=== PATIENT | male | born 1950 | race Caucasian/White ===

== ENCOUNTER 2019-07-22 23:13 | Inpatient (IN) | payer MEDICAID, MEDICARE, OTHER ==
[2019-07-23 00:06] LABS: ABS Lymphocytes 0.4 10^3/ul (1.0-4.8); ABS Monocytes 0.8 10^3/ul (0-0.8); ABS Neutrophils 11.2 10^3/ul (1.5-7.7); Eosinophil % 0.1 %; Hematocrit 32 % (42-52); Hemoglobin 10.5 g/dL (14.0-18.0); Lymphocyte % 3.2 %; Mean Corpuscular HGB Conc 33 g/dL (31-36); Mean Corpuscular Hemoglobin 28 pg (27-31); Mean Corpuscular Volume 85 fL (80-94); Nucleated Red Blood Cells % 0.1; Platelet Count 194 10^3/uL (150-450); Red Blood Count 3.79 10^6 /uL (4.18-5.48); Red Cell Distribution Width 16 % (10-15); White Blood Count 12.4 10^3/uL (3.5-10.8)
--- NOTE | 2019-07-23 00:08 | ED ---
Complex/Multi-Sys Presentation - HPI Summary HPI Summary: This patient is a 69 year old M SOREN vis EMS to ED with a chief complaint of dizziness and weakness since 1600 today. Patient took his family downtown to go shopping today. At 1600, patient began to have abdominal pain and nausea and reports losing all his energy. Patient went home and felt very dizzy and nauseous. He felt weak and felt like he was going to pass out. Patient became weaker throughout the day and so patients called EMS at 2200. Patient felt completely fine this morning, but he skipped breakfast. He did not have SOB , cough, chest pain, diarrhea. The patient rates the pain 0/10 in severity. Symptoms aggravated by nothing. Symptoms alleviated by nothing. Patient reports headache, tense neck muscles, chills. Oral temperature in the room is 98.1 F. - History Of Current Complaint Chief Complaint: EDDizziness Time Seen by Provider: 07/22/19 23:43 Hx Obtained From: Patient Onset/Duration: Sudden Onset, Lasting Hours - Since 1600, Still Present, Worse Since Timing: Constant Severity Currently: Mild Severity Initially: Mild Location: Pain At: - Headache Aggravating Factor(s): Nothing Alleviating Factor(s): Nothing Associated Signs And Symptoms: Positive: Dizziness, Weakness, Headache, Nausea, Other - Neck tenseness, chills. Negative: SOB, Cough, Chest Pain - Allergies/Home Medications Allergies/Adverse Reactions: Allergies Allergy/AdvReac Type Severity Reaction Status Date / Time MS Cefaclor [Cefaclor] Allergy Mild Unknown Verified 05/08/14 15:31 Reaction Details PMH/Surg Hx/FS Hx/Imm Hx Cardiovascular History: Reports: Hx Hypertension Respiratory History: Reports: Hx Chronic Obstructive Pulmonary Disease (COPD), Hx Pneumonia Musculoskeletal History: Reports: Hx Gout Sensory History: Reports: Hx Contacts or Glasses Opthamlomology History: Reports: Hx Contacts or Glasses - Surgical History Surgery Procedure, Year, and Place: Appendectomy - Immunization History Date of Tetanus Vaccine: Unk Date of Influenza Vaccine: Fall 2012 Infectious Disease History: No Infectious Disease History: Denies: Traveled Outside the [place] in Last 30 Days - Family History Known Family History: Positive: Hypertension - Social History Alcohol Use: None Hx Substance Use: No Substance Use Type: Reports: None Hx Tobacco Use: Yes Smoking Status (MU): Current Some Day Smoker Type: Cigars Review of Systems - ROS Summary Review of Systems Summary: Home Medications Medication Instructions Recorded Confirmed Type Allopurinol TAB* [Zyloprim 100 MG 100 mg PO DAILY 05/08/14 07/22/19 History TAB*] Calcium Carbonate-Vitamin D 1 tab PO BID 05/08/14 07/22/19 History [Calcium 600+D] Metoprolol Succinate XL TAB* 50 mg PO DAILY 05/08/14 07/22/19 History [Toprol XL TAB*] Spironolactone TAB* [Aldactone TAB 25 mg PO DAILY 05/08/14 07/22/19 History 25 MG*] Warfarin TAB(*) [Coumadin TAB(*)] 15 mg PO 1700 05/08/14 07/22/19 History Positive: Chills Negative: Chest Pain Negative: Shortness Of Breath, Cough Positive: Abdominal Pain, Nausea. Negative: Diarrhea Musculoskeletal: Other - Neck tenseness Neurological: Other - Dizziness Positive: Headache, Weakness All Other Systems Reviewed And Are Negative: Yes Physical Exam - Summary Physical Exam Summary: General: Obese male, tremulous, not ill-appearing HEENT: Normocephalic, Atraumatic. Eyes: Conjuctiva normal, PERRL. Ears: TMs within normal limits. Nares: (-) discharge, (-) erythema. Oropharynx: Clear, mucous membranes moist, (-) exudates. Neck: Soft, FROM, (-) lymphadenopathy, (-) thyromegaly, (-) JVD. Cardiovascular: Normal sinus rhythm, (-) murmur. Lungs: Clear to auscultation bilaterally (-) wheezes, (-) rales, (-) rhonchi. Abdomen: Soft, non-tender, non-distended, (-) organomegaly, normal bowel sounds. Back: (-) CVA tenderness Extremities: No edema. Skin: Warm, dry, (-) rash. Neuro: Alert and oriented x3, no focal deficits. Psychiatric: Mood normal, affect normal. Triage Information Reviewed: Yes Vital Signs On Initial Exam: Initial Vitals Temp Pulse Resp BP Pulse Ox 97.6 F 102 25 128/69 97 07/22/19 23:17 07/22/19 23:17 07/22/19 23:17 07/22/19 23:17 07/22/19 23:17 Vital Signs Reviewed: Yes Procedures - Sedation Patient Received Moderate/Deep Sedation with Procedure: No Diagnostics - Vital Signs Vital Signs Temp Pulse Resp BP Pulse Ox 07/22/19 23:17 97.6 F 102 25 128/69 97 - Laboratory Result Diagrams: 07/22/19 23:57 07/22/19 23:57 Lab Statement: Any lab studies that have been ordered have been reviewed, and results considered in the medical decision making process. - Radiology CXR Radiology Interpretation Completed By: ED Physician Summary of Radiographic Findings: No change from previous. No infiltrate. No pleural effusion. Pending official radiology report. - EKG 0043 Cardiac Rate: NL - 86 BPM EKG Rhythm: Atrial Fibrillation Summary of EKG Findings: An EKG at 0043 revealed atrial fibraillation at 86 BPM , no STEMI. Dr. Moreno has reviewed and interpreted this EKG. Complex Multi-Symp Course/Dx Course Of Treatment: 69-year-old male with acute onset of dizziness and nausea and weakness. Patient received 2 L of IV fluids. Continued to be symptomatic upon standing. Unable to bear weight and pivot or ambulate on his own. Patient with elevated white count. Lactic improved with fluids. No significant findings on chest x-ray or with urine. Presumed viral illness. Patient is 410 pounds. No one to help him at home. Patient is referred to hospitalist for admission - Diagnoses Provider Diagnoses: Tobacco use, Viral illness, Weakness - Physician Notifications Discussed Care Of Patient With: Reed Miner Time Discussed With Above Provider: 04:59 Instructed by Provider To: Admit As Inpatient - Discussed patient case with Dr. Miner, hospitalist, who accepted the patient for admission to [facility]. Discharge ED - Sign-Out/Discharge Documenting (check all that apply): Patient Departure - Admit - Discharge Plan Condition: Stable Disposition: ADMITTED TO [facility] Referrals: Ubaldo Luna MD [Primary Care Provider] - - Billing Disposition and Condition Condition: STABLE Disposition: Admitted to [facility] - Attestation Statements Document Initiated by Scribe: Yes Documenting Scribe: Bull Bhakta Provider For Whom Scribe is Documenting (Include Credential): Shirley Moreno MD Scribe Attestation: Bull Morrow, scribed for Shirley Moreno MD on 07/23/19 at 0545. Scribe Documentation Reviewed: Yes Provider Attestation: The documentation as recorded by the scribe, Bull Bhakta accurately reflects the service I personally performed and the decisions made by me, Sihrley Moreno MD Status of Scribe Document: Viewed
[2019-07-23 00:11] LABS: INR 2.8 (0.82-1.09)
[2019-07-23 00:27] LABS: Alcohol < 10 mg/dL (<10)
[2019-07-23 00:29] LABS: ALT 8 U/L (7-52); AST 10 U/L (13-39); Albumin 3.3 g/dL (3.2-5.2); Albumin/Globulin Ratio 1.1 (1-3); Alkaline Phosphatase 56 U/L (34-104); Anion Gap 5 mmol/L (2-11); BUN/Creatinine Ratio 19.8 (8-20); Blood Urea Nitrogen 23 mg/dL (6-24); CO2 Carbon Dioxide 27 mmol/L (22-32); Calcium 8.3 mg/dL (8.6-10.3); Chloride 105 mmol/L (101-111); EGFR African American 75.5 (>60); EGFR Non-African American 62.4 (>60); Glucose 167 mg/dL (70-100); Magnesium 1.8 mg/dL (1.9-2.7); Potassium 4.9 mmol/L (3.5-5.0); Sodium 137 mmol/L (135-145); Total Protein 6.3 g/dL (6.4-8.9)
[2019-07-23 00:40] LABS: Troponin I 0.03 ng/mL (<0.04)
[2019-07-23 00:54] LABS: TSH (Thyroid Stimulating Horm) 2.88 mcIU/mL (0.34-5.60)
[2019-07-23] MEDS ORDERED: NS 0.9% 1000 ML** 1,000 ML IV ONE ×2 (01:31→02:58)
[2019-07-23 03:17] LABS: Urine Appearance Cloudy; Urine Bilirubin Negative (Negative); Urine Blood Negative (Negative); Urine Color Yellow; Urine Glucose Negative (Negative); Urine Ketones Negative (Negative); Urine Nitrite Negative (Negative); Urine Protein Negative (Negative); Urine Specific Gravity 1.021 (1.010-1.030); Urine Urobilinogen Positive (Negative)
[2019-07-23] MEDS ORDERED: NS 0.9% 1000 ML** 1,000 ML IV SCH (06:30)
[2019-07-23] MEDS ORDERED: Iodixanol* (CONTRAST) 320 MG/ML 100 ML SDV IV ONE (06:52)
[2019-07-23 07:16] LABS: ABS Lymphocytes 0.5 10^3/ul (1.0-4.8); ABS Monocytes 0.9 10^3/ul (0-0.8); ABS Neutrophils 8.6 10^3/ul (1.5-7.7); Hematocrit 26 % (42-52); Hemoglobin 8.5 g/dL (14.0-18.0); Lymphocyte % 5.1 %; Mean Corpuscular HGB Conc 33 g/dL (31-36); Mean Corpuscular Hemoglobin 28 pg (27-31); Mean Corpuscular Volume 84 fL (80-94); Platelet Count 167 10^3/uL (150-450); Red Blood Count 3.02 10^6 /uL (4.18-5.48); Red Cell Distribution Width 15 % (10-15); White Blood Count 10.1 10^3/uL (3.5-10.8)
[2019-07-23 07:33] LABS: BUN/Creatinine Ratio 23.5 (8-20); Calcium 7.7 mg/dL (8.6-10.3); EGFR African American 91.8 (>60); EGFR Non-African American 75.8 (>60); Potassium 4.6 mmol/L (3.5-5.0)
[2019-07-23 08:09] LABS: % Iron Saturation 16 % (15-55); Iron 36 ug/dL (50-212); Total Iron Binding Capacity 228 mcg/dL (250-450); Transferrin 163 mg/dL (203-362)
[2019-07-23 08:25] LABS: Folate 6.04 ng/mL (>3.99)
--- NOTE | 2019-07-23 09:55 | HP ---
CC: Dr. Ubaldo Luna * ADMISSION HISTORY AND PHYSICAL: DATE OF ADMISSION: 07/23/19 PRIMARY CARE PHYSICIAN: Dr. Ubaldo Luna. CHIEF COMPLAINT: Dizziness, abdominal discomfort, nausea, feeling like he lost all his energy. HISTORY OF PRESENT ILLNESS: This is a 69-year-old male with past medical history of hypertension, AFib, gout, severe morbid obesity, dyslipidemia, came in by ambulance with a complaint of dizziness and weakness since 4 p.m. yesterday. The patient stated that he was in his usual state of health until yesterday morning. His baseline is that he is able to ambulate short distances using the cane but does not walk very far and when he goes shopping, he basically sits in the car while his and daughter actually do the shopping. Yesterday, he took his daughter and for shopping. He came home but started having abdominal pain, which he describes it as more of a discomfort than a severe pain accompanied by some diarrhea, which started yesterday as well with multiple bouts and also accompanied by severe nausea and suddenly he started feeling dizzy along with nauseousness and felt like he was about to pass out as his legs lost all energy, and he was not able to stand himself up. He also had the feeling of sweating even though it was very cold outside, overall felt cold and clammy. No obvious fever. Denies any chest pain. He also noticed a bruise in the left hip, which he is unsure how he got. He is also complaining of a headache and feeling like his neck is tense. He initially denied shortness of breath, but when his bed was put flat he stated that he normally sleeps on an incline and could not tolerate sleeping on a flat bed and once the head of the bed was adjusted, his shortness of breath had resolved during my H and P. He otherwise denies any other numbness, tingling, or lateralizing weakness other than the generalized weakness he already mentioned. PAST MEDICAL HISTORY: History of AFib, on anticoagulation with Coumadin; hypertension; dyslipidemia; gout; severe morbid obesity with BMI recorded at 57.2. PAST SURGICAL HISTORY: He has had an appendectomy while he was in the and as a kid he jumped off a bed and bumped his head on his father's tools box, at which point he states that he cracked his head open but he is not sure about what exactly the surgery was. HOME MEDICATIONS: The patient is currently on: 1. Atorvastatin 40 mg oral daily. 2. Potassium chloride 20 mEq oral daily. 3. Calcium with vitamin D 1 tablet p.o. b.i.d. 4. Allopurinol 100 mg oral daily. 5. Coumadin 13.5 mg oral daily. 6. Spironolactone 25 mg oral daily. 7. Metoprolol succinate extended release 50 mg oral daily. ALLERGIES: The patient is documented to be allergic to CEFACLOR, but his previous admission in 2013 suggests that he was given Zosyn without any reaction. FAMILY HISTORY: Mother had a history of coronary artery disease, and the patient's mother and grandfather had diabetes. SOCIAL HISTORY: He did smoke small amount of cigarettes but quit in age 24 now smokes cigars on a regular basis. Denies any alcohol or drug use. He lives with his and daughter and is otherwise full code and states his Brad Churchill to be his surrogate decision maker. REVIEW OF SYSTEMS: A 14-point review of systems did not reveal any new information other than what is mentioned in the HPI. PHYSICAL EXAMINATION GENERAL: The patient is awake, alert, oriented; does not appear to be in any acute respiratory distress. VITAL SIGNS: Temperature was noted to be 98.5 maximum in the ER, heart rate initially was noted to be 102 but improved to 91, respiration rate 25, saturating 97% on room air, BP was noted to be 112/69 sitting and 121/72 lying down. HEAD AND NECK: Atraumatic, normocephalic. Bilateral pupils reactive. Oral mucosa was dry. NECK: Supple. No jugular venous distention. LUNGS: Clear to auscultation bilaterally. HEART: Irregularly irregular without any murmurs, rubs, or gallops. ABDOMEN: Obese, diffusely tender. There was an area of erythema and bruising around the left hip. EXTREMITIES: The patient had bilateral lower extremity chronic venous stasis changes with dry scabs, which he explains there was nothing new. DIAGNOSTIC STUDIES/LAB DATA: CBC was showing minimally elevated white count of 12.4, hemoglobin and hematocrit stable at 10.5/32, platelet count was noted to be 194. Coagulation profile therapeutic at 2.8. Comprehensive metabolic panel was showing minimally elevated random glucose at 167, but otherwise unremarkable. Magnesium was minimally decreased at 1.8. AST, ALT, and rest of the LFTs were within normal limits. TSH was normal. Lactic acid 2.8, which improved to 2.2 after hydration. Urinalysis was negative for any leuk esterase or nitrite. Serum alcohol level was less than 10. Portable chest x-ray was difficult to read due to the patient's obesity, but there is no obvious infiltrate that I could appreciate, official read by Radiology is still pending. EKG shows AFib at 86 beats per minute without any ST elevation. When compared to his older EKG from 2014, the RVR had resolved. IMPRESSION: This is a 69-year-old gentleman with past medical history of morbid obesity; atrial fibrillation, on Coumadin; dyslipidemia; here due to dizziness; lactic acidosis, minimally elevated white count, initial tachycardia , possible sepsis likely viral syndrome versus colitis. ASSESSMENT: 1. Dizziness likely secondary to dehydration versus sepsis. Continue with IV hydration. 2. Lactic acidosis likely secondary to dehydration versus sepsis, improving with IV hydration. 3. Questionable sepsis based on the elevated white count and minimal tachycardia up to 102 upon arrival, but no obvious source at this point, could be viral. We will get blood cultures but no need to start any antibiotics as there is no obvious source. I will also follow up a CT abdomen and pelvis given the patient was complaining of abdominal pain and diarrhea to rule out any colitis and if he has another loose bowel movement in the ER or in the hospital, we could consider sending stool samples to rule out any C. diff. 4. Anemia, likely iron deficiency. We will send stool sample to rule out any Hemoccult and get iron panel. The patient does have a large bruise on his left hip. Follow up CT scan as mentioned. 5. History of atrial fibrillation, on Coumadin, therapeutic INR. We will continue the Coumadin, monitor the patient on telemetry, and also get an echocardiogram. 6. History of hypertension. Restart BP medication. 7. History of dyslipidemia. Restart statin. 8. History of morbid obesity. 9. Generalized weakness and debility. We will get Physical Therapy evaluation as well. 10. DVT prophylaxis: The patient is already on therapeutic INR. 11. Code Status: Full code with his Brad Churchill being his healthcare proxy. [id number]/[facility] #: [id number] [facility]
[2019-07-23] MEDS: Allopurinol TAB* 100 MG PO SCH (10:05)
[2019-07-23] MEDS: Metoprolol Succinate XL TAB* 50 MG PO SCH (10:05)
[2019-07-23] MEDS: Spironolactone TAB* 25 MG PO SCH (10:05)
[2019-07-23 10:25] LABS: ABS Basophils 0.1 10^3/ul (0-0.2); ABS Lymphocytes 0.9 10^3/ul (1.0-4.8); ABS Monocytes 1.1 10^3/ul (0-0.8); ABS Neutrophils 8.8 10^3/ul (1.5-7.7); Hematocrit 27 % (42-52); Hemoglobin 9.1 g/dL (14.0-18.0); Mean Corpuscular HGB Conc 34 g/dL (31-36); Mean Corpuscular Hemoglobin 28 pg (27-31); Mean Corpuscular Volume 84 fL (80-94); Mean Platelet Volume 8.1 fL (7.4-10.4); Nucleated Red Blood Cells % 0.1; Platelet Count 177 10^3/uL (150-450); Red Blood Count 3.22 10^6 /uL (4.18-5.48); Red Cell Distribution Width 16 % (10-15); White Blood Count 10.9 10^3/uL (3.5-10.8)
[2019-07-23 10:43] LABS: INR 2.51 (0.82-1.09)
[2019-07-23 11:17] LABS: Ferritin 82.5 ng/mL (24-336)
--- NOTE | 2019-07-23 13:48 | PN ---
Subjective Date of Service: 07/23/19 Interval History: C/O nausea when tried to stand with PT. He did not stand, could only get to sitting position. Good appetite. No new c/o. Objective Active Medications: Allopurinol (Zyloprim Tab*) 100 mg PO DAILY [facility] Last Admin: 07/23/19 10:05 Dose: 100 mg Atorvastatin Calcium (Lipitor*) 40 mg PO DAILY [facility] Metoprolol Succinate (Toprol Xl Tab*) 50 mg PO DAILY [facility] Last Admin: 07/23/19 10:05 Dose: 50 mg Spironolactone (Aldactone Tab*) 25 mg PO DAILY [facility] Last Admin: 07/23/19 10:05 Dose: 25 mg Vital Signs - 8 hr 07/23/19 07/23/19 07/23/19 05:52 06:00 06:22 Temperature Pulse Rate Respiratory 21 25 18 Rate Blood Pressure 144/64 100/53 (mmHg) O2 Sat by Pulse Oximetry 07/23/19 07/23/19 07/23/19 06:52 07:00 08:17 Temperature 98.3 F Pulse Rate 92 95 94 Respiratory 21 25 20 Rate Blood Pressure 121/52 128/60 (mmHg) O2 Sat by Pulse 82 94 96 Oximetry Oxygen Devices in Use Now: None Appearance: Alert, sl up in bed. In good spirits. Looks comfortable. Eyes: No Scleral Icterus Respiratory: Symmetrical Chest Expansion and Respiratory Effort, Clear to Auscultation, Clear to Percussion Cardiovascular: NL Sounds; No Murmurs; No JVD, - - irreg Abdominal: NL Sounds; No Tenderness; No Distention, No Hepatosplenomegaly, - - Fresh ecchymosis L upper leg, L lower torso. Not tender. Extremities: No Clubbing, Cyanosis, - - 2+ edema BL Skin: No Nodules or Sclerosis, - - Skin lichenified, hyperpigmented both lower legs. Neurological: Alert and Oriented x 3, NL Sensation Result Diagrams: 07/23/19 10:17 07/23/19 07:03 Assess/Plan/Problems-Billing Assessment: - Patient Problems (1) Anemia Current Visit: Yes Status: Acute Code(s): D64.9 - ANEMIA, UNSPECIFIED SNOMED Code(s): 105838794 Comment: Likely due to soft tissue bleeding. Warfarin on hold. Repeat CBC 07/24. (2) Atrial fibrillation with RVR Current Visit: No Status: Acute Priority: High Onset Date: 05/08/14 Code (s): I48.91 - UNSPECIFIED ATRIAL FIBRILLATION SNOMED Code(s): 193043194274258 Comment: Continue metoprolol at home dose. Hold warfarin due to soft tissue bleeding, anemia. (3) Unable to stand up Current Visit: Yes Status: Acute Code(s): R68.89 - OTHER GENERAL SYMPTOMS AND SIGNS SNOMED Code(s): 526493976 Comment: Continue PT/OT. Nausea may be due to orthostatic hypotension.
[2019-07-23] MEDS: Atorvastatin* 40 MG TAB PO SCH (14:34)
[2019-07-23] MEDS ORDERED: Influenza VAC *QUAD* 2019-20* 0.5 ML SYRINGE IM ONE (16:00)
[2019-07-24 07:11] LABS: INR 1.71 (0.82-1.09)
[2019-07-24 07:16] LABS: ABS Basophils 0.1 10^3/ul (0-0.2); ABS Eosinophils 0.1 10^3/ul (0-0.6); ABS Lymphocytes 0.9 10^3/ul (1.0-4.8); ABS Monocytes 1.3 10^3/ul (0-0.8); ABS Neutrophils 7.2 10^3/ul (1.5-7.7); Eosinophil % 0.7 %; Hematocrit 23 % (42-52); Hemoglobin 7.5 g/dL (14.0-18.0); Lymphocyte % 9.7 %; Mean Corpuscular HGB Conc 33 g/dL (31-36); Mean Corpuscular Hemoglobin 28 pg (27-31); Mean Corpuscular Volume 86 fL (80-94); Mean Platelet Volume 8.7 fL (7.4-10.4); Nucleated Red Blood Cells % 0.1; Platelet Count 146 10^3/uL (150-450); Red Blood Count 2.69 10^6 /uL (4.18-5.48); Red Cell Distribution Width 16 % (10-15); White Blood Count 9.6 10^3/uL (3.5-10.8)
--- NOTE | 2019-07-24 08:14 | PN ---
Subjective Date of Service: 07/24/19 Interval History: Overall feels better today. No new c/o. No pain. No BM since admission, pt states he hasn't eaten much here. Objective Active Medications: Allopurinol (Zyloprim Tab*) 100 mg PO DAILY [facility] Last Admin: 07/23/19 10:05 Dose: 100 mg Atorvastatin Calcium (Lipitor*) 40 mg PO DAILY [facility] Last Admin: 07/23/19 14:34 Dose: 40 mg Metoprolol Succinate (Toprol Xl Tab*) 50 mg PO DAILY [facility] Last Admin: 07/23/19 10:05 Dose: 50 mg Spironolactone (Aldactone Tab*) 25 mg PO DAILY [facility] Last Admin: 07/23/19 10:05 Dose: 25 mg Vital Signs - 8 hr 07/24/19 03:44 Temperature 98.3 F Pulse Rate 87 Respiratory 20 Rate Blood Pressure 125/78 (mmHg) O2 Sat by Pulse 99 Oximetry Oxygen Devices in Use Now: None Appearance: Alert, sl up in bed, supine. In fair spirits. Looks comfortable. Eyes: No Scleral Icterus Respiratory: Symmetrical Chest Expansion and Respiratory Effort, Clear to Auscultation, Clear to Percussion Cardiovascular: NL Sounds; No Murmurs; No JVD, RRR, No Edema, - Extremities: No Clubbing, Cyanosis, - - 2+ edema BL Skin: No Nodules or Sclerosis, - - Skin dry, lichenified, hyperpigmented both lower legs Neurological: Alert and Oriented x 3, NL Sensation Result Diagrams: 07/24/19 06:00 07/23/19 07:03 Microbiology and Other Data: Microbiology 07/23/19 07:15 Aerobic Blood Culture - Preliminary Blood Venous No Growth Day 1 Anaerobic Blood Culture - Preliminary No Growth Day 1 07/23/19 07:12 Aerobic Blood Culture - Preliminary Blood Venous No Growth Day 1 Anaerobic Blood Culture - Preliminary No Growth Day 1 Assess/Plan/Problems-Billing Assessment: - Patient Problems (1) Anemia Current Visit: Yes Status: Acute Code(s): D64.9 - ANEMIA, UNSPECIFIED SNOMED Code(s): 363373593 Comment: Likely due to soft tissue bleeding. Warfarin on hold. Repeat CBC 07/25. Note INR 1.71 on 07/24/19. (2) Atrial fibrillation with RVR Current Visit: No Status: Acute Priority: High Onset Date: 05/08/14 Code (s): I48.91 - UNSPECIFIED ATRIAL FIBRILLATION SNOMED Code(s): 875333618082916 Comment: Continue metoprolol at home dose. Hold warfarin due to soft tissue bleeding, anemia. (3) Unable to stand up Current Visit: Yes Status: Acute Code(s): R68.89 - OTHER GENERAL SYMPTOMS AND SIGNS SNOMED Code(s): 458835903 Comment: Continue PT/OT. Nausea may be due to orthostatic hypotension. Poor bed mobility, will need STR. (4) Constipation Current Visit: Yes Status: Acute Code(s): K59.00 - CONSTIPATION, UNSPECIFIED SNOMED Code(s): 01894448 Comment: Patient refused laxatives on 07/24, would ask again on 07/25.
[2019-07-24] MEDS ORDERED: Perflutren Lipid Microsphere* 3 ML VIAL ONE (09:19)
[2019-07-24] MEDS: Allopurinol TAB* 100 MG PO SCH (09:23)
[2019-07-24] MEDS: Atorvastatin* 40 MG TAB PO SCH (09:23)
[2019-07-24] MEDS: Metoprolol Succinate XL TAB* 50 MG PO SCH (09:23)
[2019-07-24] MEDS: Spironolactone TAB* 25 MG PO SCH (09:23)
--- NOTE | 2019-07-24 11:13 | ECHO ---
*[facility]* [place] [address] Fax #: [phone] Transthoracic Echocardiogram Patient: Ubaldo Churchill : 1950 Study Date: 07/24/2019 Age: 69 Gender: M HR: 91 bpm Height: 70 in /177.8 cm BSA: 3.39 m^2 Weight: 472 lb /214.5 kg BMI: 67.9 kg/m^2 *Trash Collector Truck Driver: * Barbara Aparicio [facility] *Referring Physician: * Reed Miner *Reading Physician: * Jose Rai MD Indications: Syncope. Atrial Fibrillation. History: COPD,morbid obesity,gout. Risk factors: Current tobacco use. Hypertension. Conclusions Summary: - Left ventricle: The cavity size is normal. Wall thickness is mildly to moderately increased. Systolic function is normal. The estimated ejection fraction is 60-65%. - Right ventricle: The cavity size is moderately dilated. Systolic function is reduced. - Left atrium: The atrium is moderately dilated. - Aortic valve: There is mild to moderate regurgitation. - Pulmonary arteries: Systolic pressure is mildly increased. - Small posterior pericardial effusion without hemodynamic significance versus pericardial fat tissue - Abnormal septal motion, consider conductiion disease and/or right ventricle volume/pressure overload. Study data: Transthoracic echocardiogram. Procedure: Transthoracic echocardiography was performed. Image quality was suboptimal. The study was technically limited due to restricted patient mobility, body habitus, and COPD. Intravenous Definity , 4 mlswas administered. Image enhancement administered by Complete 2D, spectral Doppler, and color flow Doppler. Patient room number: 441-2. Rhythm: Normal sinus rhythm with PAC's. Findings Left ventricle: The cavity size is normal. Wall thickness is mildly to moderately increased. Systolic function is normal. The estimated ejection fraction is 60-65%. Wall motion is normal; there are no regional wall motion abnormalities. Left ventricular diastolic function parameters are indeterminate. Right ventricle: Not well visualized. The cavity size is moderately dilated. Systolic function is reduced. Left atrium: Well visualized. The atrium is moderately dilated. Right atrium: Not well visualized. Mitral valve: Poorly visualized. The leaflets are mildly thickened. There is no evidence of stenosis. There is mild regurgitation. Aortic valve: Poorly visualized. The valve is trileaflet. The leaflets are normal thickness. There is no evidence of stenosis. There is mild to moderate regurgitation. Tricuspid valve: Not well visualized. There is no evidence of stenosis. There is mild regurgitation. Pulmonic valve: Not well visualized. There is no evidence of stenosis. There is no significant regurgitation. Aorta: The aorta is well visualized and normal size. Pericardium: Epicardial adipose noted. Pulmonary arteries: Not well visualized. Systolic pressure is mildly increased. Systemic veins: Not visualized. Pulmonary veins: Poorly visualized. Measurements Left ventricle Value Ref Aortic valve continued Value Ref PASTOR, LAX 5.5 cm 4.2 - 5.8 LVOT/AV, VTI ratio 0.64 ----- ESD, LAX (H) 4.5 cm 2.5 - 4.0 AR peak v 3.38 m/sec ----- FS, LAX (L) 17 % 25 - 43 AR decel time 1481 ms ----- PW, ED, LAX (H) 1.4 cm 0.6 - 1.0 AR PHT 429 ms ----- Mid-wall FS 8 % --------- AR peak grad 46 mm Hg ----- PW, ED (H) 1.4 cm 0.6 - 1.0 PW/ID, ED 0.25 --------- Mitral valve Value Ref Peak E 1.27 m/sec ----- LVOT Value Ref Peak A 0.91 m/sec ----- Peak lisa, S 1.21 m/sec --------- Decel time 120 ms ----- VTI, S 19.9 cm --------- Peak grad, D 6.5 mm Hg ----- Peak grad, S 6 mm Hg --------- Peak E/A ratio 1.39 ----- Mean grad, S 2 mm Hg --------- MR peak v 4.45 m/sec ----- Ventricular septum Value Ref Pulmonic valve Value Ref IVS, ED (H) 1.3 cm 0.6 - 1.0 Peak v, S 0.93 m/sec ----- Peak grad, S 3.5 mm Hg ----- Right ventricle Value Ref PASTOR, LAX 4.1 cm --------- Tricuspid valve Value Ref PASTOR major ax, A4C (L) 5.1 cm 5.9 - 8.3 TR peak v (H) 3.22 m/sec <=2.8 Peak RV-RA grad, S 41 mm Hg ----- Left atrium Value Ref LA ID 7.8 cm --------- Aortic root Value Ref SI dim ES, LAX 7.8 cm --------- Root diam 3.0 cm <5.2 SI dim, A4C 4.7 cm --------- Ascending aorta Value Ref Aortic valve Value Ref AAo AP diam, S 4.4 cm ----- Peak v, S 1.76 m/sec --------- VTI, S 31.1 cm --------- Decending aorta Value Ref Mean grad, S 6.9 mm Hg --------- Fran peak lisa 0.87 m/sec ----- Peak grad, S 12.4 mm Hg --------- Legend: (L) and (H) joanne values outside specified reference range. Prepared and electronically signed by Jose Rai MD 07/24/2019 11:12
[2019-07-24] MEDS ORDERED: Metoprolol Tartrate TAB* 25 MG PO ONE (18:42)
[2019-07-25 05:06] LABS: Hematocrit 20 % (42-52); Mean Corpuscular HGB Conc 35 g/dL (31-36); Mean Corpuscular Hemoglobin 29 pg (27-31); Mean Corpuscular Volume 84 fL (80-94); Mean Platelet Volume 7.7 fL (7.4-10.4); Platelet Count 145 10^3/uL (150-450); Red Blood Count 2.41 10^6 /uL (4.18-5.48); Red Cell Distribution Width 16 % (10-15); White Blood Count 8.8 10^3/uL (3.5-10.8)
[2019-07-25 06:12] LABS: ABS Basophils 0.1 10^3/ul (0-0.2); ABS Eosinophils 0.1 10^3/ul (0-0.6); ABS Lymphocytes 1.1 10^3/ul (1.0-4.8); ABS Monocytes 0.9 10^3/ul (0-0.8); ABS Neutrophils 6.5 10^3/ul (1.5-7.7); Eosinophil % 1.3 %; Lymphocyte % 12.9 %; Nucleated Red Blood Cells % 0.1
[2019-07-25] MEDS ORDERED: Polyethylene Glycol 3350* 17 GM PACKET PO PRN (07:55)
[2019-07-25] MEDS ORDERED: Magnesium Hydroxide LIQ* 30 ML UDC PO PRN (07:55)
[2019-07-25] MEDS ORDERED: Senna TAB 8.6 mg* TAB PO PRN (07:55)
[2019-07-25] MEDS: Allopurinol TAB* 100 MG PO SCH (08:25)
[2019-07-25] MEDS: Docusate CAP* 100 MG PO SCH ×2 (08:25→20:35)
[2019-07-25] MEDS: Magnesium Hydroxide LIQ* 30 ML UDC PO SCH ×2 (08:25→20:36)
[2019-07-25] MEDS: Atorvastatin* 40 MG TAB PO SCH (08:25)
[2019-07-25] MEDS: Spironolactone TAB* 25 MG PO SCH (08:25)
[2019-07-25] MEDS: Metoprolol Succinate XL TAB* 50 MG PO SCH (08:25)
--- NOTE | 2019-07-25 10:48 | PN ---
Subjective Date of Service: 07/25/19 Interval History: pt had large BM last night-denies melena or BRBPR. Pt did not fall or hit his left flank. His left flank hematoma appears to be spontaneous Objective Active Medications: Allopurinol (Zyloprim Tab*) 100 mg PO DAILY [facility] Last Admin: 07/25/19 08:25 Dose: 100 mg Atorvastatin Calcium (Lipitor*) 40 mg PO DAILY [facility] Last Admin: 07/25/19 08:25 Dose: 40 mg Docusate Sodium (Colace Cap*) 100 mg PO BID [facility] Last Admin: 07/25/19 08:25 Dose: 100 mg Magnesium Hydroxide (Milk Of Magnesia Liq*) 30 ml PO BID [facility] Last Admin: 07/25/19 08:25 Dose: Not Given Magnesium Hydroxide (Milk Of Magnesia Liq*) 30 ml PO BID PRN PRN Reason: CONSTIPATION Metoprolol Succinate (Toprol Xl Tab*) 50 mg PO DAILY [facility] Last Admin: 07/25/19 08:25 Dose: 50 mg Polyethylene Glycol/Electrolytes (Miralax*) 17 gm PO DAILY PRN PRN Reason: CONSTIPATION Senna (Senokot 8.6 Mg Tab*) 1 tab PO BEDTIME PRN PRN Reason: CONSTIPATION Spironolactone (Aldactone Tab*) 25 mg PO DAILY [facility] Last Admin: 07/25/19 08:25 Dose: 25 mg Vital Signs - 8 hr 07/25/19 07/25/19 07/25/19 03:43 07:15 07:45 Temperature 97.2 F 98.0 F Pulse Rate 105 100 Respiratory 21 16 18 Rate Blood Pressure 114/59 115/56 (mmHg) O2 Sat by Pulse 98 100 Oximetry Oxygen Devices in Use Now: Nasal Cannula Appearance: 69 yo M in nAD, AAOx3 Eyes: No Scleral Icterus, PERRLA Ears/Nose/Mouth/Throat: NL Teeth, Lips, Gums, Mucous Membranes Moist Neck: NL Appearance and Movements; NL JVP, Trachea Midline Respiratory: Symmetrical Chest Expansion and Respiratory Effort, Clear to Auscultation Cardiovascular: - - irregular, no murmur Abdominal: NL Sounds; No Tenderness; No Distention, No Hepatosplenomegaly Lymphatic: No Cervical Adenopathy Extremities: No Clubbing, Cyanosis, - - +2 nonpitting leg edema Skin: No Nodules or Sclerosis, - - venous stasis skin changes and discoloration of b/l distal LE's, large left flank , left upper thigh hematoma at 50 cm in diam Neurological: Alert and Oriented x 3, NL Muscle Strength and Tone Result Diagrams: 07/25/19 04:58 07/23/19 07:03 Microbiology and Other Data: Microbiology 07/23/19 07:15 Aerobic Blood Culture - Preliminary Blood Venous No Growth Day 1 Anaerobic Blood Culture - Preliminary No Growth Day 1 07/23/19 07:12 Aerobic Blood Culture - Preliminary Blood Venous No Growth Day 1 Anaerobic Blood Culture - Preliminary No Growth Day 1 Assess/Plan/Problems-Billing Assessment: 69 yo M with h/o chronic a. fib presents with spontaneous left thigh /flank hematoma, pain and anemia secondary to it - Patient Problems (1) Anemia Comment: Likely due to soft tissue bleeding. Warfarin on hold. Repeat CBC today noon. Hb at 7 this AM, will likely need transfusion today (2) Constipation Comment: resolved (3) Unable to stand up Comment: Continue PT/OT. Was able to walk last night with PT, still will likely require STR (4) Atrial fibrillation Comment: Continue metoprolol at home dose. Hold warfarin due to soft tissue bleeding, anemia. Rate controlled (5) DVT prophylaxis Comment: SCD's, no anticoagulation due to hematoma, anemia Status and Disposition: inpatient
[2019-07-25 12:14] LABS: Hematocrit 22 % (42-52); Hemoglobin 7.7 g/dL (14.0-18.0)
[2019-07-25 12:20] LABS: INR 1.44 (0.82-1.09)
[2019-07-25] MEDS: Ferrous Gluconate TAB* 324 MG TAB PO SCH (20:35)
[2019-07-26 06:37] LABS: ABS Eosinophils 0.2 10^3/ul (0-0.6); ABS Lymphocytes 0.7 10^3/ul (1.0-4.8); ABS Monocytes 0.7 10^3/ul (0-0.8); ABS Neutrophils 5.2 10^3/ul (1.5-7.7); Eosinophil % 2.3 %; Hematocrit 20 % (42-52); Hemoglobin 6.7 g/dL (14.0-18.0); Lymphocyte % 10.4 %; Mean Corpuscular HGB Conc 34 g/dL (31-36); Mean Corpuscular Hemoglobin 29 pg (27-31); Mean Corpuscular Volume 85 fL (80-94); Mean Platelet Volume 8.1 fL (7.4-10.4); Nucleated Red Blood Cells % 0.2; Platelet Count 164 10^3/uL (150-450); Red Blood Count 2.31 10^6 /uL (4.18-5.48); Red Cell Distribution Width 15 % (10-15); White Blood Count 6.8 10^3/uL (3.5-10.8)
[2019-07-26 07:00] LABS: Calcium 8.3 mg/dL (8.6-10.3); EGFR African American 112.7 (>60); EGFR Non-African American 93.2 (>60)
[2019-07-26] MEDS ORDERED: Furosemide IV* 10 MG/ML VIAL (40 MG) IV ONE (08:39)
[2019-07-26] MEDS: Metoprolol Succinate XL TAB* 50 MG PO SCH (10:27)
[2019-07-26] MEDS: DOXYcycline CAP(*) 100 MG PO SCH ×2 (10:27→21:12)
[2019-07-26] MEDS: Allopurinol TAB* 100 MG PO SCH (10:29)
[2019-07-26] MEDS: Ferrous Gluconate TAB* 324 MG TAB PO SCH ×2 (10:29→21:12)
[2019-07-26] MEDS: Atorvastatin* 40 MG TAB PO SCH (10:29)
[2019-07-26] MEDS: Spironolactone TAB* 25 MG PO SCH (10:30)
[2019-07-26] MEDS: Docusate CAP* 100 MG PO SCH ×2 (10:30→21:12)
[2019-07-26] MEDS: Neomycin/Polym/Bacit TOP OINT* 15 GM TOPICAL SCH (10:31)
[2019-07-26] MEDS: Magnesium Hydroxide LIQ* 30 ML UDC PO SCH ×2 (10:33→21:13)
--- NOTE | 2019-07-26 10:56 | PN ---
Subjective Date of Service: 07/26/19 Interval History: Pt feels well. walked with PT last night and is hopeful to be d/c'd home and not to need STR. RN pulled IV from R antacubial fossa and noted purulent discharge from the IV site area. Objective Active Medications: Allopurinol (Zyloprim Tab*) 100 mg PO DAILY [facility] Last Admin: 07/26/19 10:29 Dose: 100 mg Atorvastatin Calcium (Lipitor*) 40 mg PO DAILY [facility] Last Admin: 07/26/19 10:29 Dose: 40 mg Docusate Sodium (Colace Cap*) 100 mg PO BID [facility] Last Admin: 07/26/19 10:30 Dose: 100 mg Doxycycline Hyclate (Vibramycin Cap(*)) 100 mg PO BID [facility] Last Admin: 07/26/19 10:27 Dose: 100 mg Ferrous Gluconate (Fergon Tab*) 324 mg PO BID [facility] Last Admin: 07/26/19 10:29 Dose: 324 mg Magnesium Hydroxide (Milk Of Magnesia Liq*) 30 ml PO BID [facility] Last Admin: 07/26/19 10:33 Dose: Not Given Magnesium Hydroxide (Milk Of Magnesia Liq*) 30 ml PO BID PRN PRN Reason: CONSTIPATION Metoprolol Succinate (Toprol Xl Tab*) 50 mg PO DAILY [facility] Last Admin: 07/26/19 10:27 Dose: 50 mg Neomycin/Polymyxin/Bacitracin (Neosporin Top Oint Tube*) 1 applic TOPICAL DAILY [facility] Last Admin: 07/26/19 10:31 Dose: 1 applic Polyethylene Glycol/Electrolytes (Miralax*) 17 gm PO DAILY PRN PRN Reason: CONSTIPATION Senna (Senokot 8.6 Mg Tab*) 1 tab PO BEDTIME PRN PRN Reason: CONSTIPATION Spironolactone (Aldactone Tab*) 25 mg PO DAILY [facility] Last Admin: 07/26/19 10:30 Dose: 25 mg Vital Signs - 8 hr 07/26/19 07/26/19 03:47 08:45 Temperature 97.9 F 97.4 F Pulse Rate 77 91 Respiratory 16 14 Rate Blood Pressure 125/52 134/52 (mmHg) O2 Sat by Pulse 100 100 Oximetry Oxygen Devices in Use Now: Nasal Cannula Appearance: 69 yo M in nAD, aAOx3 Eyes: No Scleral Icterus, PERRLA Ears/Nose/Mouth/Throat: NL Teeth, Lips, Gums, Mucous Membranes Moist Neck: NL Appearance and Movements; NL JVP, Trachea Midline Respiratory: Symmetrical Chest Expansion and Respiratory Effort, Clear to Auscultation Cardiovascular: NL Sounds; No Murmurs; No JVD, - - irregular Abdominal: NL Sounds; No Tenderness; No Distention, No Hepatosplenomegaly Lymphatic: No Cervical Adenopathy Extremities: - - b/l LE's edema +2 pitting with venous stasis skin changes and discoloration. R antecubital fossa area of fluctulant abscess with an open alma of 5 mm draining puss. No cellulitis noted on skin Skin: - - see above, also known left flank hematoma-large , but unchanged from yesterday Neurological: Alert and Oriented x 3, NL Muscle Strength and Tone Result Diagrams: 07/26/19 06:06 07/26/19 06:06 Microbiology and Other Data: Microbiology 07/23/19 07:15 Aerobic Blood Culture - Preliminary Blood Venous No Growth Day 1 Anaerobic Blood Culture - Preliminary No Growth Day 1 07/23/19 07:12 Aerobic Blood Culture - Preliminary Blood Venous No Growth Day 1 Anaerobic Blood Culture - Preliminary No Growth Day 1 Assess/Plan/Problems-Billing Assessment: 69 yo M with h/o chronic a. fib presents with spontaneous left thigh /flank hematoma, pain and anemia secondary to it - Patient Problems (1) Anemia Comment: Likely due to soft tissue bleeding. Warfarin on hold. Repeat CBC today noon. Hb at 6.7 this AM, will transfuse today 2 U PRBC with a dose of Lasix in between units (2) Unable to stand up Comment: Continue PT/OT. Was able to walk last night with PT, coould potentially go home. (3) Atrial fibrillation Comment: Continue metoprolol at home dose. Hold warfarin due to soft tissue bleeding, anemia. Rate controlled (4) Abscess of right arm Comment: will start on PO Doxy Pt is nontoxic, no fever, cellulitis, leukocytosis will get US on antecubital fossa and cx discharge Occured from IV access. (5) DVT prophylaxis Comment: SCD's, no anticoagulation due to hematoma, anemia Status and Disposition: inpatient
[2019-07-26 13:59] LABS: Hematocrit 22 % (42-52); Hemoglobin 7.3 g/dL (14.0-18.0); Mean Corpuscular HGB Conc 34 g/dL (31-36); Mean Corpuscular Hemoglobin 29 pg (27-31); Mean Corpuscular Volume 86 fL (80-94); Mean Platelet Volume 8.1 fL (7.4-10.4); Platelet Count 165 10^3/uL (150-450); Red Blood Count 2.53 10^6 /uL (4.18-5.48); Red Cell Distribution Width 15 % (10-15); White Blood Count 6.9 10^3/uL (3.5-10.8)
[2019-07-27 05:39] LABS: BUN/Creatinine Ratio 22.9 (8-20); Calcium 8.2 mg/dL (8.6-10.3); EGFR African American 111.2 (>60); EGFR Non-African American 91.9 (>60); Potassium 3.9 mmol/L (3.5-5.0)
[2019-07-27 05:45] LABS: ABS Basophils 0.1 10^3/ul (0-0.2); ABS Eosinophils 0.1 10^3/ul (0-0.6); ABS Lymphocytes 0.7 10^3/ul (1.0-4.8); ABS Monocytes 0.6 10^3/ul (0-0.8); ABS Neutrophils 5.5 10^3/ul (1.5-7.7); Eosinophil % 1.9 %; Hematocrit 24 % (42-52); Hemoglobin 7.9 g/dL (14.0-18.0); Lymphocyte % 10.2 %; Mean Corpuscular HGB Conc 33 g/dL (31-36); Mean Corpuscular Hemoglobin 28 pg (27-31); Mean Corpuscular Volume 86 fL (80-94); Nucleated Red Blood Cells % 0.2; Platelet Count 180 10^3/uL (150-450); Red Blood Count 2.78 10^6 /uL (4.18-5.48); Red Cell Distribution Width 16 % (10-15); White Blood Count 7.1 10^3/uL (3.5-10.8)
[2019-07-27] MEDS: DOXYcycline CAP(*) 100 MG PO SCH (09:25)
[2019-07-27] MEDS: Atorvastatin* 40 MG TAB PO SCH (09:25)
[2019-07-27] MEDS: Metoprolol Succinate XL TAB* 50 MG PO SCH (09:26)
[2019-07-27] MEDS: Spironolactone TAB* 25 MG PO SCH (09:26)
[2019-07-27] MEDS: Ferrous Gluconate TAB* 324 MG TAB PO SCH ×2 (09:26→20:31)
[2019-07-27] MEDS: Allopurinol TAB* 100 MG PO SCH (09:26)
[2019-07-27] MEDS: Magnesium Hydroxide LIQ* 30 ML UDC PO SCH ×2 (09:27→20:32)
[2019-07-27] MEDS: Docusate CAP* 100 MG PO SCH ×2 (09:27→20:31)
[2019-07-27] MEDS: Neomycin/Polym/Bacit TOP OINT* 15 GM TOPICAL SCH (09:28)
--- NOTE | 2019-07-27 12:19 | PN ---
Subjective Date of Service: 07/27/19 Interval History: Pt feels nauseated on doxycycline. no abd pain. walked to bathroom today. Denies SOB Objective Active Medications: Allopurinol (Zyloprim Tab*) 100 mg PO DAILY [facility] Last Admin: 07/27/19 09:26 Dose: 100 mg Amoxicillin/Clavulanate Potassium (Augmentin Tab*) 875 mg PO BID [facility] Atorvastatin Calcium (Lipitor*) 40 mg PO DAILY [facility] Last Admin: 07/27/19 09:25 Dose: 40 mg Docusate Sodium (Colace Cap*) 100 mg PO BID [facility] Last Admin: 07/27/19 09:27 Dose: Not Given Ferrous Gluconate (Fergon Tab*) 324 mg PO BID [facility] Last Admin: 07/27/19 09:26 Dose: 324 mg Magnesium Hydroxide (Milk Of Magnesia Liq*) 30 ml PO BID [facility] Last Admin: 07/27/19 09:27 Dose: Not Given Magnesium Hydroxide (Milk Of Magnesia Liq*) 30 ml PO BID PRN PRN Reason: CONSTIPATION Metoprolol Succinate (Toprol Xl Tab*) 50 mg PO DAILY [facility] Last Admin: 07/27/19 09:26 Dose: 50 mg Neomycin/Polymyxin/Bacitracin (Neosporin Top Oint Tube*) 1 applic TOPICAL DAILY [facility] Last Admin: 07/27/19 09:28 Dose: 1 applic Polyethylene Glycol/Electrolytes (Miralax*) 17 gm PO DAILY PRN PRN Reason: CONSTIPATION Senna (Senokot 8.6 Mg Tab*) 1 tab PO BEDTIME PRN PRN Reason: CONSTIPATION Spironolactone (Aldactone Tab*) 25 mg PO DAILY [facility] Last Admin: 07/27/19 09:26 Dose: 25 mg Vital Signs - 8 hr 07/27/19 07/27/19 07/27/19 07:40 08:00 08:15 Temperature 97.9 F 98.1 F Pulse Rate 71 69 Respiratory 20 20 20 Rate Blood Pressure 137/67 133/50 (mmHg) O2 Sat by Pulse 100 98 Oximetry 07/27/19 11:30 Temperature 97.6 F Pulse Rate 64 Respiratory 20 Rate Blood Pressure 117/45 (mmHg) O2 Sat by Pulse 100 Oximetry Oxygen Devices in Use Now: Nasal Cannula Appearance: 69 yo m in nAD, aAOx3 Eyes: No Scleral Icterus, PERRLA Ears/Nose/Mouth/Throat: NL Teeth, Lips, Gums, Mucous Membranes Moist Neck: NL Appearance and Movements; NL JVP, Trachea Midline Respiratory: Symmetrical Chest Expansion and Respiratory Effort, Clear to Auscultation Cardiovascular: - - irregular Abdominal: NL Sounds; No Tenderness; No Distention, No Hepatosplenomegaly, - - left flank, upper thigh hematoma unchanged Lymphatic: No Cervical Adenopathy Extremities: No Clubbing, Cyanosis, - - +1 pitting edema b/l distal LE's with venous stasis changes b/l LE's. r antecubital fossa bascess draining, smaller then yesterday, no cellulitis noted Neurological: Alert and Oriented x 3, NL Muscle Strength and Tone Result Diagrams: 07/27/19 04:55 07/27/19 04:55 Microbiology and Other Data: Microbiology 07/23/19 07:15 Aerobic Blood Culture - Preliminary Blood Venous No Growth Day 1 Anaerobic Blood Culture - Preliminary No Growth Day 1 07/23/19 07:12 Aerobic Blood Culture - Preliminary Blood Venous No Growth Day 1 Anaerobic Blood Culture - Preliminary No Growth Day 1 Assess/Plan/Problems-Billing Assessment: 69 yo M with h/o chronic a. fib presents with spontaneous left thigh /flank hematoma, pain and anemia secondary to it - Patient Problems (1) Anemia Comment: Likely due to soft tissue bleeding. Warfarin on hold. S/p 2 U PRBC transfusion on 07/26/19 (2) Unable to stand up Comment: Continue PT/OT. Was able to walk last night with PT, coould potentially go home. (3) Atrial fibrillation Comment: Continue metoprolol at home dose. Hold warfarin due to soft tissue bleeding, anemia. Rate controlled (4) Abscess of right arm Comment: pt is nauseated on PO Doxy Cx from R antecubital fossa abscess positive for MSSA. Will change to Augmentin -hopefully will be better tolerated. absecc is draining freely-no need for I&D for now. Also dopplers positive for cephalic vein thrombosis (5) DVT prophylaxis Comment: SCD's, no anticoagulation due to hematoma, anemia Status and Disposition: inpatient, medically ready for d/c
[2019-07-27] MEDS ORDERED: Ondansetron INJ* 2 MG/ML VIAL IV PRN (13:08)
[2019-07-27] MEDS: Amoxicillin/Clavulanate TAB* 875 MG PO SCH (20:31)
[2019-07-28] MEDS: Docusate CAP* 100 MG PO SCH (08:47)
[2019-07-28] MEDS: Magnesium Hydroxide LIQ* 30 ML UDC PO SCH (08:47)
[2019-07-28] MEDS: Metoprolol Succinate XL TAB* 50 MG PO SCH (08:51)
[2019-07-28] MEDS: Allopurinol TAB* 100 MG PO SCH (08:52)
[2019-07-28] MEDS: Spironolactone TAB* 25 MG PO SCH (08:52)
[2019-07-28] MEDS: Ferrous Gluconate TAB* 324 MG TAB PO SCH (08:52)
[2019-07-28] MEDS: Atorvastatin* 40 MG TAB PO SCH (08:52)
[2019-07-28] MEDS: Neomycin/Polym/Bacit TOP OINT* 15 GM TOPICAL SCH (08:53)
[2019-07-28] MEDS: Amoxicillin/Clavulanate TAB* 875 MG PO SCH (08:53)
[2019-07-28 12:22] VITALS: BP 122/59
--- NOTE | 2019-07-28 14:40 | DS ---
CC: Dr. Luna * DISCHARGE SUMMARY: DATE OF ADMISSION: 07/23/19 DATE OF DISCHARGE: 07/28/19 PRIMARY CARE PROVIDER: Dr. Ubaldo Luna. DISPOSITION AT DISCHARGE: Home. CONDITION ON DISCHARGE: Stable. DISCHARGE DIAGNOSES: 1. Profuse weakness and anemia due to spontaneous left flank hematoma in patient who was anticoagulated on Coumadin with INR to 2.8 at admission. 2. Anemia secondary to above, status post 2 units of packed red blood cells transfusion during the hospital stay. 3. Superficial phlebitis in the right antecubital area after an IV placed in this area with 1 cm methicillin-sensitive Staphylococcus aureus positive abscess that is currently freely draining and right cephalic vein thrombosis. 4. Generalized deconditioning and weakness. SECONDARY DIAGNOSES: 1. Chronic atrial fibrillation, on anticoagulation with Coumadin that was discontinued during the hospital stay. 2. Hypertension. 3. Dyslipidemia. 4. Gout. 5. Severe morbid obesity with a BMI of 67. MEDICATIONS AT DISCHARGE: Include: 1. Augmentin 875 mg 1 tablet b.i.d. for a total of 7 days for right antecubital abscess. 2. Allopurinol 100 mg daily. 3. Lipitor 40 mg daily. 4. Calcium carbonate with vitamin D 1 tablet b.i.d. 5. Metoprolol succinate 50 mg daily. 6. Aldactone 75 mg daily. 7. Colace 100 mg b.i.d. 8. Ferrous gluconate 324 mg b.i.d. 9. Triple antibiotic ointment apply to affected area on the right antecubital fossa for the next week. LABORATORY DATA AND STUDIES PERFORMED DURING THE HOSPITAL STAY: The patient's INR on admission was 2.8, on 07/25/19 was 1.4. On 07/27/19 white blood cell count was 7.1, hemoglobin 7.9, hematocrit of 24, and platelets was 180. Sodium was 137, potassium 3.9, chloride 103, carbon dioxide 28, BUN 19, creatinine 0.83. Microbiology test showed negative from admission blood cultures and right arm purulent discharge, positive for MSSA that is sensitive to Augmentin, cephalosporins, resistant to tetracycline. Studies performed during the hospital stay included soft tissue ultrasound obtained on 07/26/19, impression: "Subcutaneous edema with thrombosis of the cephalic vein at 1.4 cm, fluid collection, concerning for abscess." Transthoracic echocardiogram obtained at admission showed EF of 60% to 65% with moderately dilated right ventricle with moderate regurgitation of aortic valve with left atrium moderately dilated with small posterior pericardial effusion without hemodynamic significant versus pericardial soft tissue. Abnormal septal motion considered a conduction disease and right ventricle volume pressure overload. Abdomen and pelvis CT obtained on admission, impression: "Limited study. Pericardial effusion. Hepatomegaly with fatty infiltration of the liver. Bilateral nephrolithiasis without hydronephrosis. There is an approximately 14 cm hematoma of the subcutaneous fat along the left hemipelvis. HOSPITALIZATION COURSE: Ubaldo Churchill is a 69-year-old male who has morbid obesity and who has history of atrial fibrillation on Coumadin. He presented to the hospital on 07/23/19 complaining of abdominal discomfort, nausea, low energy, somewhat near syncopal episode, and unable to stand up. The patient was noted to have large left flank hematoma and his hemoglobin was down from 10.5 on 07/22/19 to 8.5 a day later. The patient's CT of abdomen and pelvis showed large left lung hematoma. The patient stated that he did not fall or hit his left side at any point. He was diagnosed with spontaneous left flank hematoma while on Coumadin. The patient continued to be anemic and the hematoma initially was enlarging. His hemoglobin dropped to 6.7 on 07/26/19 and he required 2 units of packed red blood cell transfusion. After the transfusion, his hemoglobin normalized and the patient became more comfortable. Also initially the patient was so weak, he was unable to walk. For the remaining days of his hospital stay, he received physical therapy and initially was considered for short-term rehabilitation. In fact, he was strongly recommended short term rehabilitation on the day of discharge, but refused. The patient is aware of the risks of falls if he goes home, but he feels that he will get stronger over the day and he was comfortable to ambulate with a rolling walker, which he had done with help of physical therapy during this hospital stay. He refuses to be placed in short-term rehabilitation center and accepts the risk of being discharged home. Our protective services case worker is right now arranging for the patient for visiting nurses to come and check on patient as well for a walker. We discussed possibility of future anticoagulation with the patient. At this point, the patient has spontaneous hematoma and anticoagulation was stopped. Recommended for the patient to follow up with his primary care provider in approximately 1 week without Coumadin and to discuss with his primary care provider to see if he ever should be restarted on anticoagulation. The patient remained in atrial fibrillation throughout his hospital stay. PHYSICAL EXAMINATION: At the time of discharge, blood pressure of 122/59, heart rate of 82 and irregularly irregular, respiratory rate 16, oxygen saturation 96% on room air, temperature 97.9. General: The patient is a very pleasant 69-year-old obese male who is in no acute distress. Alert, awake, and oriented x3. HEENT: Head: Atraumatic, normocephalic. Eyes: Pupils are equal , reactive to light and accommodation. Oropharynx is clear. Mucosa moist. Neck: Supple. No JVD. No bruits bilaterally. Cardiovascular: Irregularly irregular rhythm. No murmur. Respiratory: Clear to auscultation bilaterally. Abdomen: Very obese, soft, nontender. Bowel sounds are present in all 4 quadrants. The left flank has a large hematoma overlying the left lower flank, left upper thigh, left buttock hematoma that is approximately 50 to 60 cm in diameter. Extremities: There is +2 pitting pedal edema bilaterally with chronic venous stasis skin changes and discoloration. No open wounds. Pulses are +2 bilaterally. There is no clubbing, no cyanosis. Neuro Evaluation: Speech clear. Cranial nerves II through XII grossly intact. Motor strength is 5/5 bilaterally. On further evaluation of the skin in right antecubital area, the patient has a small palpable induration that is approximately 1 cm in diameter, there is freely draining purulent material. Induration is much smaller than in the past couple of days. There is no evidence of cellulitis. Once again, the purulent material from the abscess is freely draining. The patient is recommended to follow up with his primary care provider in 4 to 7 days after discharge. The patient is strongly recommended to go to rehabilitation center, but unfortunately he refuses. At this point, we will set an appointment with visiting nurse association as well as with a walker for home. Please note that this is a short summary of the patient's hospital stay. Please refer to further medical record for details. TIME SPENT: Approximately 50 minutes was spent on the patient's discharge. [id number]/[facility] #: [id number] ЕЛЕНА
== END 2019-07-28 16:00 | disposition home health service (06) | DRG 605 ==
LOC: ED 23:13 → MEDTELE 07-23 06:16
PROVIDERS: ADMIT Internal Medicine; ATTEND Internal Medicine
PROC: 30233N1 Transfusion of Nonautologous Red Blood Cells into Peripheral Vein, Percutaneous Approach (ICD-10-PCS; principal; 2019-07-26)
DX: S70.02XA Contusion of left hip, initial encounter (principal); L02.413 Cutaneous abscess of right upper limb; I82.619 Acute embolism and thrombosis of superficial veins of unspecified upper extremity; Z68.44 Body mass index [BMI] 60.0-69.9, adult; T82.867A Thrombosis due to cardiac prosthetic devices, implants and grafts, initial encounter; E87.2 Acidosis; I80.8 Phlebitis and thrombophlebitis of other sites; D50.9 Iron deficiency anemia, unspecified; I10 Essential (primary) hypertension; E66.01 Morbid (severe) obesity due to excess calories; E78.5 Hyperlipidemia, unspecified; I48.91 Unspecified atrial fibrillation; K59.00 Constipation, unspecified; B95.61 Methicillin susceptible Staphylococcus aureus infection as the cause of diseases classified elsewhere; I08.3 Combined rheumatic disorders of mitral, aortic and tricuspid valves; M10.9 Gout, unspecified; E86.0 Dehydration; F17.290 Nicotine dependence, other tobacco product, uncomplicated; I87.8 Other specified disorders of veins; Z79.01 Long term (current) use of anticoagulants; Z79.899 Other long term (current) drug therapy; Z88.8 Allergy status to other drugs, medicaments and biological substances; Z82.49 Family history of ischemic heart disease and other diseases of the circulatory system; Z83.3 Family history of diabetes mellitus
CPT/HCPCS: 36415; 71045; 74177; 80048; 80053; 80320; 81003; 82607; 82728; 82746; 83540; 83550; 83605; 83735; 83880; 84443; 84484; 85014; 85018; 85025; 85027; 85610; 86850; 86900; 86901; 86922; 87040; 87070; 87077; 87186; 87205; 87640; 87641; 90686; 93005; 93306; 97530; 99283; A9270-GY; C8929; G0480; G8978-GP-CM; G8979-GP-CL; G8987-GO-CK; G8988-GO-CI; J1940; J2405; P9040

== ENCOUNTER 2019-12-12 14:59 | Emergency (ER) | payer MEDICARE, MEDICAID ==
--- OUTSIDE RECORDS SUMMARY | 2019-12-12 15:18 | XMS REPORT | Continuity of Care Document ---
:1950 External Reference #:[id number] Author Name Phuong Jefferson, CRUZ, COMMERCIAL LENDING VICE PRESIDENT (transmitted by agent of provider Phuong Smith) Address [address] [place] [address] Care Team Providers Name Role Phone Suzie Ye, COMMERCIAL LENDING VICE PRESIDENT - Family Care Team Information Children'S Literature Professor Problems Active Problems Provider Date Hyperlipidemia Onset: 11/15/2019 Permanent atrial fibrillation Phuong Jefferson, CRUZ, COMMERCIAL LENDING VICE PRESIDENT Onset: 2019 Morbid obesity Aman House M.D., [facility] Onset: 11/16/2019 Edema Aman House M.D., [facility] Onset: 11/16/2019 Atrial fibrillation Aman House M.D., [facility] Onset: 11/16/2019 Social History Type Date Description Comments Sex Unknown Tobacco Use Start: Unknown Cigar smoker one daily Smoking Status Reviewed: 11/16/19 Cigar smoker one daily ETOH Use Denies alcohol use Allergies, Adverse Reactions, Alerts Description No Known Drug Allergies Medications Active Medications SIG Qnty Indications Ordering Date Provider Potassium Chloride 1 by mouth twice a 120tabs R60.0 Phuong Jefferson 2019 [facility] day with additional Giselle, CRUZ, 20Meq Tablets 1-2 tablets as COMMERCIAL LENDING VICE PRESIDENT ER directed Metolazone 1 by mouth every 90tabs Harsh, 11/16/2019 5mg day 20 min before Aman Trejo M.D., Tablets in the morning [facility] lasix Furosemide 1 by mouth in am 180tabs Harsh, 11/16/2019 40mg and 1 at noon Aman Trejo M.D., Tablets [facility] Senna-Docusate 1 by mouth twice a Unknown Sodium day constipation 8.6-50mg Tablets Warfarin Sodium as directed Unknown 4mg Tablets Atorvastatin Calcium 1 by mouth every Unknown day 80mg Tablets Warfarin Sodium take 1 as directed Unknown 3mg Tablets Vitamin D 1 by mouth every Unknown (Cholecalciferol) day 25mcg (1000 Ut) Tablets Allopurinol 1 by mouth every Unknown 100mg day Tablets History Medications Potassium Chloride 1 by mouth 90tabs R60.0 Aman House 11/16/2019 - Luz ER every day Delores Trejo, [facility] 12/06/2019 20Meq Tablets ER Immunizations Description No Information Available Vital Signs Date Vital Result Comment 11/16/2019 9:27am BP Systolic Sitting Left Arm 112 mmHg BP Diastolic Sitting Left Arm 75 mmHg Heart Rate 54 /min Respiratory Rate 20 /min Height 71 inches 5'11" Weight 400.00 lb per scale at home BMI (Body Mass Index) 55.8 kg/m2 BSA (Body Surface Area) 2.83 m2 [place] body weight in kilograms 78 kg O2 % BldC Oximetry 96 % Results Description No Information Available Procedures Date Code Description Status 11/16/2019 78894 EKG-Tracing And Report Completed Medical Devices Description No Information Available Encounters Type Date Location Provider Dx Diagnosis Office Visit 11/16/2019 Cardiology Office Aman House I48.91 Unspecified atrial 9:00a Delores Trejo, [facility] fibrillation R60.0 Localized edema E66.01 Morbid (severe) obesity due to excess calories Assessments Date Code Description Provider 12/06/2019 I48.21 Permanent atrial fibrillation Phuong Jefferson, MSN, [facility] 12/06/2019 R60.0 Localized edema Phuong Jefferson, MSN, [facility] 12/06/2019 E66.01 Morbid (severe) obesity due to Phuong Jefferson, CRUZ , excess calories [facility] 11/16/2019 I48.91 Unspecified atrial fibrillation Aman House M.D. , [facility] 11/16/2019 R60.0 Localized edema Aman House M.D., [facility] 11/16/2019 E66.01 Morbid (severe) obesity due to Aman House M.D., [facility] excess calories Plan of Treatment 12/06/2019 - Phuong Jefferson, MSN, FNPI48.21 Permanent atrial fibrillationComments:No changes. He may need a Holter monitor to define his chronotropic competence but given that the testing center is down for now, I will have him continue to monitor.R60.0 Localized edemaNew Medication:Potassium Chloride Luz ER 20 Meq - 1 by mouth twice a day with additional 1-2 tablets as directedNew Labs:Comprehensive Metabolic Panel, Ordered: 12/06/19Magnesium, Ordered: 12/06/19TSH Reflex FT4 And/Or FT3, Ordered: 12/06/19CBC W/Automated Diff, Ordered: 12/06/19Comments:He will restart the metolazone and will increase the potassium to three tabs daily. Will need to repeat the labs next week. The echo is still pending.E66.01 Morbid (severe) obesity due to excess caloriesAllComments:Phone consultation today was 21 minutes.Follow up:Will speak with him again in one week. I will call him later today after we have the labs to possibly increase the potassium more. Functional Status Functional Condition Comment Date Status Manual wheelchair is used to ambulate Active Requires assistance with all ADL's Active Requires assistance with ambulating Active Requires assistance with bathing Active Requires assistance with dressing Active Requires assistance with standing Active Requires assistance with toileting Active Mental Status Description No Information Available Referrals Description No Information Available
--- OUTSIDE RECORDS SUMMARY | 2019-12-12 15:18 | XMS REPORT | Continuity of Care Document ---
:1950 External Reference #:[id number] Author Name Aman House M.D., [facility] (transmitted by agent of provider Caitlin Mina) Address [address] [place] [address] Care Team Providers Name Role Phone Suzie Ye, SURVEILLANCE OBSERVER - Family Care Team Information Teletype Adjuster Problems Active Problems Provider Date Hyperlipidemia Onset: 11/15/2019 Social History Type Date Description Comments Sex Unknown Tobacco Use Start: Unknown Cigar smoker one daily Smoking Status Reviewed: 11/16/19 Cigar smoker one daily ETOH Use Denies alcohol use Allergies, Adverse Reactions, Alerts Description No Known Drug Allergies Medications Active Medications SIG Qnty Indications Ordering Date Provider Metolazone 1 by mouth every 90tabs Harsh, 11/16/2019 5mg day 20 min before Aman Trejo M.D., Tablets in the morning [facility] lasix Furosemide 1 by mouth in am 180tabs Harsh, 11/16/2019 40mg and 1 at noon Aman Trejo M.D., Tablets FAC Potassium Chloride 1 by mouth every 90tabs Harsh, 11/16/2019 Luz ER day Aman Trejo M.D., 20Meq Tablets [facility] ER Senna-Docusate 1 by mouth twice a Unknown Sodium day constipation 8.6-50mg Tablets Warfarin Sodium as directed Unknown 4mg Tablets Atorvastatin Calcium 1 by mouth every Unknown day 80mg Tablets Warfarin Sodium take 1 as directed Unknown 3mg Tablets Vitamin D 1 by mouth every Unknown (Cholecalciferol) day 25mcg (1000 Ut) Tablets Allopurinol 1 by mouth every Unknown 100mg day Tablets Immunizations Description No Information Available Vital Signs Date Vital Result Comment 11/16/2019 9:27am BP Systolic Sitting Left Arm 112 mmHg BP Diastolic Sitting Left Arm 75 mmHg Heart Rate 54 /min Respiratory Rate 20 /min Height 71 inches 5'11" Weight 400.00 lb per scale at home BMI (Body Mass Index) 55.8 kg/m2 BSA (Body Surface Area) 2.83 m2 [place] body weight in kilograms 78 kg O2 % BldC Oximetry 96 % Results Description No Information Available Procedures Description No Information Available Medical Devices Description No Information Available Encounters Description No Information Available Assessments Description No Information Available Plan of Treatment 11/16/2019 - Aman House M.D., FACCAllNew Medication:Metolazone 5 mg - 1 by mouth every day 20 min before in the morning lasixFurosemide 40 mg - 1 by mouth in am and 1 at noonPotassium Chloride Luz ER 20 Meq - 1 by mouth every dayNew Labs:Basic Metabolic Panel, Ordered: 11/16/19New Orders:Echocardiogram, Ordered: 11/16/19 Functional Status Functional Condition Comment Date Status Manual wheelchair is used to ambulate Active Requires assistance with all ADL's Active Requires assistance with ambulating Active Requires assistance with bathing Active Requires assistance with dressing Active Requires assistance with standing Active Requires assistance with toileting Active Mental Status Description No Information Available Referrals Description No Information Available
--- OUTSIDE RECORDS SUMMARY | 2019-12-12 15:18 | XMS REPORT | Continuity of Care Document ---
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 Problems Provider Date Hyperlipidemia Onset: 11/15/2019 Morbid obesity Aman House M.D., [facility] Onset: 11/16/2019 Edema Aman House M.D., [facility] Onset: 11/16/2019 Atrial fibrillation Aman House M.D., [facility] Onset: 11/16/2019 Social History Type Date [...] Aman Trejo M.D., Tablets in the morning [facility] lasix Furosemide 1 by mouth in am 180tabs Harsh, 11/16/2019 40mg and 1 at noon Aman Trejo M.D., Tablets [facility] Potassium Chloride 1 by mouth every 90tabs Harsh, 11/16/2019 Luz ER day Aman Trejo M.D., 20Meq Tablets [facility] ER Senna-Docusate 1 by mouth twice [...] kg/m2 BSA (Body Surface Area) 2.83 m2 [place] body weight in kilograms 78 kg O2 % BldC Oximetry 96 % Results Description No Information Available Procedures Date Code Description Status 11/16/2019 31519 EKG-Tracing And Report Completed Medical Devices Description No Information Available Encounters Type Date Location Provider Dx Diagnosis Office Visit 11/16/2019 Cardiology Office Aman House I48.91 Unspecified atrial 9:00a Delores Trejo, [facility] fibrillation R60.0 Localized edema E66.01 Morbid (severe) obesity due to excess calories Assessments Date Code Description Provider 11/16/2019 I48.91 Unspecified atrial fibrillation Aman House M.D. , [facility] 11/16/2019 R60.0 Localized edema Aman House M.D., [facility] 11/16/2019 E66.01 Morbid (severe) obesity due to Aman House M.D., [facility] excess calories Plan of Treatment Future Appointment(s):12/06/2019 9:40 am - Phuong Jefferson, CRUZ, LINEN ATTENDANT at Cardiology [id number]/16/2019 - Aman House M.D., FACCI48.91 Unspecified atrial fibrillationNew Orders:Echocardiogram, Ordered: 11/16/19Comments:He has been in atrial fibrillation for many years. His VR is overcontrolled on metoprolol 50 mg a day. I will DC metoprolol. He will continue with his coumadin treatment followed at the [place].R60.0 Localized edemaNew Labs:Basic Metabolic Panel, Ordered: 11/16/19New Orders:Echocardiogram, Ordered: Comments:Massive edema. Will double his lasix and add metolazone plus KCL. He will have an echo and BMP in 2 weeks.E66.01 Morbid (severe) obesity due to excess caloriesComments:I recommended to him to see a bariatric team in [place] before rejecting bariatric surgery because of fear to the surgery.AllNew Medication:Metolazone 5 mg - 1 by mouth every day 20 min before in the morning lasixFurosemide 40 mg - 1 by mouth in am and 1 at noonPotassium Chloride Luz ER 20 Meq - 1 by mouth every dayFollow up:Follow up visit in two weeks. Functional Status Functional Condition Comment Date Status Manual wheelchair is used to ambulate Active Requires assistance with all ADL's Active Requires assistance with ambulating Active Requires assistance with bathing Active Requires assistance with dressing Active Requires assistance with standing Active Requires assistance with toileting Active Mental Status Description No Information Available Referrals Description No Information Available
--- OUTSIDE RECORDS SUMMARY | 2019-12-12 15:18 | XMS REPORT | Continuity of Care Document ---
:1950 External Reference #:[id number] Author Name Phuong Jefferson, MSN, UNIT COORDINATOR (transmitted by agent of provider Zahra Chun) Address [address] [place] [address] Care Team Providers Name Role Phone Suzie Ye, UNIT COORDINATOR - Family Care Team Information Production Officer [phone] Problems Active Problems Provider Date Hyperlipidemia Onset: 11/15/2019 Permanent atrial fibrillation Phuong Jefferson, CRUZ, UNIT COORDINATOR Onset: 2019 Morbid obesity Aman House M.D., [facility] Onset: 11/16/2019 Edema Aman House M.D., [facility] Onset: 11/16/2019 Atrial fibrillation Aman House M.D., [facility] Onset: 11/16/2019 Social History Type Date Description [...] Giselle, CRUZ, 20Meq Tablets 1-2 tablets as UNIT COORDINATOR ER directed Metolazone 1 by mouth every 90tabs Harsh, 11/16/2019 5mg day 20 min before Aman Trejo M.D., Tablets in the morning [facility] lasix Furosemide 1 by mouth in am 180tabs Harsh, 11/16/2019 40mg and 1 at noon Aman Trejo M.D., Tablets [facility] Senna-Docusate 1 by mouth twice a Unknown [...] - Luz ER every day Delores Trejo, [facility] 12/06/2019 20Meq Tablets ER Immunizations Description No Information Available Vital Signs Date Vital Result Comment 11/16/2019 9:27am BP Systolic Sitting Left Arm 112 mmHg BP Diastolic Sitting Left Arm 75 mmHg Heart Rate 54 /min Respiratory Rate 20 /min Height 71 inches 5'11" Weight 400.00 lb per scale at home BMI (Body Mass Index) 55.8 kg/m2 BSA (Body Surface Area) 2.83 m2 [place] body weight in kilograms 78 kg O2 % BldC Oximetry 96 % Results Description No Information Available Procedures Date Code Description Status 11/16/2019 83467 EKG-Tracing And Report Completed Medical Devices Description No Information Available Encounters Type Date Location Provider Dx Diagnosis Office Visit 11/16/2019 Cardiology Office Aman House I48.91 Unspecified atrial 9:00a Delores Trejo, [facility] fibrillation R60.0 Localized edema E66.01 Morbid (severe) obesity due to excess calories Assessments Date Code Description Provider 12/06/2019 I48.21 Permanent atrial fibrillation Phuong Jefferson, MSN, [facility] 12/06/2019 R60.0 Localized edema Phuong Jefferson, MSN, [facility] 12/06/2019 E66.01 Morbid (severe) obesity due to Phuong Jefferson, CRUZ , excess calories [facility] 11/16/2019 I48.91 Unspecified atrial fibrillation Aman House M.D. , [facility] 11/16/2019 R60.0 Localized edema Aman House M.D., [facility] 11/16/2019 E66.01 Morbid (severe) obesity due to Aman House M.D., [facility] excess calories Plan of Treatment Future Appointment(s):12/13/2019 11:00 am - Phuong Jefferson, MSN, UNIT COORDINATOR at Cardiology [id number]/06/2019 - Phuong Jefferson, MSN, FNPI48.21 Permanent atrial fibrillationComments:No changes. He may need a Holter monitor to define his chronotropic competence but given that the testing center is down for now, I will have him continue to monitor.R60.0 Localized edemaNew Medication :Potassium Chloride Luz ER 20 Meq - 1 by mouth twice a day with additional 1-2 tablets as directedComments:He will restart the metolazone and will increase the potassium to three tabs daily. Will need to repeat the labs next week. The echo is still pending.E66.01 Morbid (severe) obesity due to excess caloriesAllComments:Phone consultation today was 25 minutes.Follow up:Will speak with him again in one week. He will get the labs repeated on Wednesday. Functional Status Functional Condition Comment Date Status Manual wheelchair is used to ambulate Active Requires assistance with all ADL's Active Requires assistance with ambulating Active Requires assistance with bathing Active Requires assistance with dressing Active Requires assistance with standing Active Requires assistance with toileting Active Mental Status Description No Information Available Referrals Description No Information Available
--- NOTE | 2019-12-12 15:26 | ED ---
Complex/Multi-Sys Presentation - HPI Summary HPI Summary: Patient is a 69 y/o M presenting to the ED for a chief complaint of low potassium level of 2.7. Patient states he was told to be seen at [facility] after a having his [facility] [place]. He took 40 mg of potassium 1 hour [employer]. He notes bilateral LE edema that is unchanged from baseline. Patient denies fever, cough, shortness of breath, chest pain. No aggravating or alleviating factors are reported. Recently, he had his potassium medications increased, but he denies any other changes in medication. - History Of Current Complaint Chief Complaint: EDGeneral Time Seen by Provider: 12/12/19 15:13 Hx Obtained From: Patient Onset/Duration: Gradual Onset, Still Present Timing: Constant Severity Currently: Moderate Severity Initially: Moderate Aggravating Factor(s): Nothing Alleviating Factor(s): Nothing Associated Signs And Symptoms: Positive: Edema - Bilateral LE, unchanged from baseline. Negative: SOB, Cough, Chest Pain, Fever - Allergies/Home Medications Allergies/Adverse Reactions: Allergies Allergy/AdvReac Type Severity Reaction Status Date / Time cefaclor Allergy Mild Unknown Verified 12/12/19 15:02 Reaction Details Home Medications: Home Medications Allopurinol TAB* [Zyloprim 100 MG TAB*] 100 mg PO DAILY 05/08/14 [History Confirmed 12/12/19] Ferrous Gluconate TAB* [Fergon TAB*] 324 mg PO BID #60 tab 07/28/19 [Rx Confirmed 12/12/19] Atorvastatin* [Lipitor*] 40 mg PO DAILY 12/12/19 [History Confirmed 12/12/19] Calcium Carbonate CHEW TAB* [Tums*] 500 mg PO BID 12/12/19 [History Confirmed ] Docusate CAP* [Colace Cap*] 100 mg PO BID PRN 12/12/19 [History Confirmed ] Furosemide TAB* [Lasix TAB*] 40 mg PO BID 12/12/19 [History Confirmed 12/12/19] Metolazone TAB* [Zaroxolyn TAB*] 5 mg PO QAM 12/12/19 [History Confirmed ] Metoprolol Succinate XL TAB* [Toprol XL TAB*] 50 mg PO DAILY 12/12/19 [History Confirmed 12/12/19] Potassium Chlor TAB* [Klor Con ER TAB*] 40 meq PO DAILY 12/12/19 [History Confirmed 12/12/19] Spironolactone TAB* [Aldactone TAB*] 25 mg PO BID 12/12/19 [History Confirmed ] Warfarin TAB(*) [Coumadin TAB(*)] 12 mg PO MOWEFR 12/12/19 [History Confirmed ] Warfarin TAB(*) [Coumadin TAB(*)] 15 mg PO SUTUTHSA 12/12/19 [History Confirmed 12/12/19] PMH/Surg Hx/FS Hx/Imm Hx Previously Healthy: Yes Cardiovascular History: Reports: Hx Hypercholesterolemia, Hx Hypertension Respiratory History: Reports: Hx Chronic Obstructive Pulmonary Disease (COPD) Denies: Hx Pneumonia Musculoskeletal History: Reports: Hx Arthritis, Hx Gout Sensory History: Reports: Hx Contacts or Glasses - readers Denies: Hx Hearing Aid Opthamlomology History: Reports: Hx Contacts or Glasses - readers EENT History: Denies: Hx Hearing Aid - Surgical History Surgical History: Yes Surgery Procedure, Year, and Place: Appendectomy - Immunization History Date of Tetanus Vaccine: Unk Date of Influenza Vaccine: Fall 2012 Infectious Disease History: No Infectious Disease History: Denies: Traveled Outside the [place] in Last 30 Days - Family History Known Family History: Positive: Hypertension - Social History Occupation: Unemployed Lives: With Family Alcohol Use: None Hx Substance Use: No Substance Use Type: Reports: None Hx Tobacco Use: Yes Smoking Status (MU): Current Some Day Smoker Type: Cigars Review of Systems Negative: Fever Negative: Chest Pain Negative: Shortness Of Breath, Cough Positive: Edema - Bilateral LE, unchanged from baseline All Other Systems Reviewed And Are Negative: Yes Physical Exam - Summary Physical Exam Summary: Constitutional: Well-developed, Morbidly Obese, Alert. (-) Distressed Skin: Warm, Dry HENT: Normocephalic; Atraumatic Eyes: Conjunctiva normal Neck: Musculoskeletal ROM normal neck. (-) JVD, (-) Stridor, (-) Tracheal deviation Cardio: Rhythm regular, rate normal, Heart sounds normal; Intact distal pulses; The pedal pulses are 2+ and symmetric. Radial pulses are 2+ and symmetric. (-) Murmur Pulmonary/Chest wall: Effort normal. (-) Respiratory distress, (-) Wheezes, (-) Rales Abd: Soft, (-) tenderness, (-) Distension, (-) Guarding, (-) Rebound Musculoskeletal: Bilateral LE edema Lymph: (-) Cervical adenopathy Neuro: Alert, Oriented x3 Psych: Mood and affect Normal Triage Information Reviewed: Yes Vital Signs On Initial Exam: Initial Vitals Temp Pulse Resp BP Pulse Ox 98.2 F 83 19 126/84 95 12/12/19 15:01 12/12/19 15:01 12/12/19 15:01 12/12/19 15:01 12/12/19 15:01 Vital Signs Reviewed: Yes Procedures - Sedation Patient Received Moderate/Deep Sedation with Procedure: No Diagnostics - Vital Signs Vital Signs Temp Pulse Resp BP Pulse Ox 12/12/19 15:01 98.2 F 83 19 126/84 95 - Laboratory Result Diagrams: 12/12/19 15:33 Lab Statement: Any lab studies that have been ordered have been reviewed, and results considered in the medical decision making process. Complex Multi-Symp Course/Dx Course Of Treatment: Patient is a 69 y/o M presenting to the ED for a chief complaint of low potassium level of 2.7. Patient states he was told to be seen at [facility] after a having his blood [facility] [place] [facility] [place]. He took 40 mg of potassium 1 hour [employer]. He notes bilateral LE edema that is unchanged from baseline. Patient denies fever, cough, shortness of breath, chest pain. Recently, he had his potassium medications increased, but he denies any other changes in medication. On exam, morbidly obese, bilateral LE edema. In the ED course, patient was given potassium chloride 40 meq PO. Laboratory abnormal findings: BUN 34, BUN/Creatinine ratio 29.8, potassium 3.0. All other abnormal lab results are not pertinent to current cc. Patient will be discharged with a diagnosis of hypokalemia. Follow up with PCP in 2-3 days. - Diagnoses Provider Diagnoses: Hypokalemia Discharge ED - Sign-Out/Discharge Documenting (check all that apply): Patient Departure - Discharge - Discharge Plan Condition: Stable Disposition: HOME Patient Education Materials: Hypokalemia (ED) Referrals: Ubaldo Luna MD [Medical Doctor] - Additional Instructions: RETURN TO THE EMERGENCY DEPARTMENT FOR CHANGING OR WORSENING SYMPTOMS. Follow up with your primary care physician in 2-3 days for repeat blood work. Increase your potassium supplement to 3 tabs daily (120 mEq) for the next 3-4 days. - Attestation Statements Document Initiated by Scribe: Yes Documenting Scribe: Barbara Lynch Provider For Whom Tresaibe is Documenting (Include Credential): Randy Hopkins DO Scribe Attestation: IBarbara, scribed for Randy Hopkins DO on 12/12/19 at 1628. Status of Scribe Document: Ready
[2019-12-12 16:03] LABS: BUN/Creatinine Ratio 29.8 (8-20); Calcium 9.2 mg/dL (8.6-10.3); EGFR African American 77.1 (>60); EGFR Non-African American 63.7 (>60)
[2019-12-12] MEDS ORDERED: Potassium Chlor TAB* 20 MEQ TAB.ER PO ONE (16:16)
[2019-12-12 17:03] VITALS: BP 124/61
== END 2019-12-12 17:02 | disposition home or self-care (01) ==
LOC: ED 14:59
DX: E87.6 Hypokalemia (principal); R60.9 Edema, unspecified; E78.00 Pure hypercholesterolemia, unspecified; I10 Essential (primary) hypertension; J44.9 Chronic obstructive pulmonary disease, unspecified; Z79.899 Other long term (current) drug therapy; Z72.0 Tobacco use; Z79.01 Long term (current) use of anticoagulants
CPT/HCPCS: 36415; 80048; 99283; A9270-GY

== ENCOUNTER 2023-10-21 17:00 | Inpatient (IN) ==
[2023-10-21 17:43] LABS: Hematocrit 37.7 % (38-53); Mean Corpuscular Hemoglobin 30.3 pg (27-33); Mean Corpuscular Hgb Conc 34.6 g/dL (31-36); Mean Corpuscular Volume 87.6 fL (80-97); Platelet Count 211 10^3/uL (150-450); Red Cell Distribution Width 15.6 % (12-17); White Blood Count 14.7 10^3/uL (3.6-10.2)
[2023-10-21] MEDS: Metoprolol Tartrate 5 mg VIAL 5 ml VIAL (1 mg/ml) IV ONE (17:45)
[2023-10-21] MEDS: Cefepime 2 GM in Dextrose 2 GM/50 ML BAG IV ONE (17:46)
[2023-10-21] MEDS: Vancomycin 1,500 MG in NS 0.9% 250 ml 250 ML IVPB ONE (17:50)
[2023-10-21 17:51] LABS: INR 1.44 (0.83-1.13)
[2023-10-21 17:59] LABS: ABS Basophils 0.1 10^3/uL (0.0-0.1); ABS Lymphocytes 0.2 10^3/uL (1.0-4.8); ABS Monocytes 0.3 10^3/uL (0.0-1.1); ABS Neutrophils 14.1 10^3/uL (1.5-7.6); ABS Nucleated RBC 0.01 10^3/ul; Eosinophil % 0.2 %; Lymphocyte % 1.3 %; Nucleated Red Blood Cells % 0.1 %/100WBC (0.0-0.8)
[2023-10-21 18:01] LABS: Albumin 4.2 g/dL (3.2-5.2); Albumin/Globulin Ratio 1.1 (1-3); C Reactive Protein 13.21 mg/L (<8.01); Calcium 9.2 mg/dL (8.6-10.3); Creatinine, Serum 1.44 mg/dL (0.67-1.17); Globulin 3.9 g/dL (2-4); Potassium 3.5 mmol/L (3.5-5.0); Total Bilirubin 0.8 mg/dL (0.2-1.0); Total Protein 8.1 g/dL (6.4-8.9); eGFR CKD-EPI 51.3 (>60)
[2023-10-21 19:32] LABS: High Sensitivity Troponin 1 Hr 26 pg/mL (<20)
[2023-10-21] MEDS: NS 0.9% 1000 ml BAG 1,000 ML IV ONE ×2 (20:21→22:05)
[2023-10-21] MEDS ORDERED: Vancomycin per Pharmacy 1 EA NOTE FOLLOW UP PRN (21:12)
[2023-10-21] MEDS ORDERED: Vancomycin 1,250 MG in NS 0.9% 250 ml 250 ML IVPB SCH (22:00)
[2023-10-21 22:43] LABS: Calcium 8.8 mg/dL (8.6-10.3); Creatinine, Serum 1.62 mg/dL (0.67-1.17); Potassium 3.8 mmol/L (3.5-5.0); eGFR CKD-EPI 44.5 (>60)
[2023-10-22] MEDS: NS 0.9% 1000 ml BAG 1,000 ML IV ONE ×2 (00:04→04:46)
[2023-10-22] MEDS ORDERED: Vancomycin 1,250 MG in NS 0.9% 250 ml 250 ML IVPB SCH (01:00)
[2023-10-22 01:53] LABS: Calcium 8.2 mg/dL (8.6-10.3); Creatinine, Serum 1.49 mg/dL (0.67-1.17); eGFR CKD-EPI 49.2 (>60)
[2023-10-22] MEDS: Cefepime 2 GM in Dextrose 2 GM/50 ML BAG IV SCH ×2 (02:10→02:15)
[2023-10-22 03:20] LABS: Urine Osmo 349 mOsm/kg (150-1150)
[2023-10-22 03:21] LABS: Osmolality Serum 275 mOsm/kg (275-295)
[2023-10-22] MEDS: Lactated Ringers 1000 ml BAG 1,000 ML IV ONE ×3 (06:21→10:02)
[2023-10-22 06:42] LABS: Hematocrit 33.8 % (38-53); Hemoglobin 11.4 g/dL (13.2-16.3); Mean Corpuscular Hemoglobin 29.9 pg (27-33); Mean Corpuscular Hgb Conc 33.7 g/dL (31-36); Mean Corpuscular Volume 88.7 fL (80-97); Platelet Count 186 10^3/uL (150-450); Red Blood Count 3.81 10^6/uL (4.06-5.63); Red Cell Distribution Width 15.6 % (12-17); White Blood Count 25.1 10^3/uL (3.6-10.2)
[2023-10-22 07:04] LABS: Calcium 8.3 mg/dL (8.6-10.3); Creatinine, Serum 1.51 mg/dL (0.67-1.17); Potassium 4.1 mmol/L (3.5-5.0); eGFR CKD-EPI 48.5 (>60)
[2023-10-22] MEDS ORDERED: ceFAZolin VIAL 2 GM in NS 0.9% 100 ml BAG 100 ML IVPB SCH (10:00)
[2023-10-22] MEDS: ceFAZolin 2 GM PREMIX 2 GM/50 ML BAG IV SCH (11:07)
[2023-10-22] MEDS ORDERED: Sulfur Hexaflouride MICROSPHR 25 MG VIAL ONE (14:48)
[2023-10-22] MEDS ORDERED: Vancomycin 2,000 MG in NS 0.9% 500 ml BAG 500 ML IVPB SCH (17:00)
[2023-10-23 07:48] LABS: ABS Lymphocytes 0.2 10^3/uL (1.0-4.8); ABS Monocytes 0.6 10^3/uL (0.0-1.1); ABS Neutrophils 15.1 10^3/uL (1.5-7.6); ABS Nucleated RBC 0.01 10^3/ul; Eosinophil % 0.1 %; Hematocrit 31.3 % (38-53); Hemoglobin 10.7 g/dL (13.2-16.3); Lymphocyte % 1.2 %; Mean Corpuscular Hemoglobin 30.1 pg (27-33); Mean Corpuscular Volume 88.3 fL (80-97); Mean Platelet Volume 7.9 fL (7.5-11.2); Platelet Count 156 10^3/uL (150-450); Red Blood Count 3.55 10^6/uL (4.06-5.63); Red Cell Distribution Width 15.9 % (12-17)
[2023-10-23 08:05] LABS: Calcium 8.8 mg/dL (8.6-10.3); Creatinine, Serum 1.29 mg/dL (0.67-1.17); Magnesium 1.9 mg/dL (1.9-2.7); Potassium 3.3 mmol/L (3.5-5.0); eGFR CKD-EPI 58.5 (>60)
[2023-10-23] MEDS: Magnesium Sulfate IV 1GM/100ML 1 GM/100 ML BAG IV ONE (10:40)
[2023-10-23] MEDS: Potassium EFFERVES 25 meq TAB PO ONE (10:57)
[2023-10-24 05:54] LABS: ABS Eosinophils 0.1 10^3/uL (0.0-0.5); ABS Lymphocytes 0.3 10^3/uL (1.0-4.8); ABS Monocytes 0.7 10^3/uL (0.0-1.1); ABS Neutrophils 9.7 10^3/uL (1.5-7.6); ABS Nucleated RBC 0.01 10^3/ul; Eosinophil % 0.8 %; Hematocrit 29.6 % (38-53); Hemoglobin 10.4 g/dL (13.2-16.3); Lymphocyte % 2.5 %; Mean Corpuscular Hemoglobin 30.4 pg (27-33); Mean Corpuscular Hgb Conc 35.2 g/dL (31-36); Mean Corpuscular Volume 86.5 fL (80-97); Mean Platelet Volume 8.1 fL (7.5-11.2); Nucleated Red Blood Cells % 0.1 %/100WBC (0.0-0.8); Platelet Count 160 10^3/uL (150-450); Red Blood Count 3.42 10^6/uL (4.06-5.63); Red Cell Distribution Width 16.1 % (12-17); White Blood Count 10.7 10^3/uL (3.6-10.2)
[2023-10-24 06:13] LABS: Calcium 8.8 mg/dL (8.6-10.3); Creatinine, Serum 1.11 mg/dL (0.67-1.17); Magnesium 1.9 mg/dL (1.9-2.7); Potassium 3.2 mmol/L (3.5-5.0); eGFR CKD-EPI 70.1 (>60)
[2023-10-24] MEDS: KCL 20 MEQ/100 ML IVPREMIX 20 MEQ/100 ML BAG IV SCH (08:34)
[2023-10-24] MEDS: Potassium EFFERVES 25 meq TAB PO ONE (08:34)
[2023-10-24] MEDS: Potassium Chlor 20 meq TAB.ER PO ONE (13:51)
[2023-10-24] MEDS ORDERED: Vancomycin Trough Check NOTE FOLLOW UP ONE (16:30)
[2023-10-25 06:09] LABS: ABS Eosinophils 0.1 10^3/uL (0.0-0.5); ABS Lymphocytes 0.5 10^3/uL (1.0-4.8); ABS Monocytes 1.1 10^3/uL (0.0-1.1); ABS Neutrophils 9.8 10^3/uL (1.5-7.6); Eosinophil % 0.6 %; Hematocrit 29.6 % (38-53); Hemoglobin 10.3 g/dL (13.2-16.3); Lymphocyte % 4.1 %; Mean Corpuscular Hemoglobin 30.6 pg (27-33); Mean Corpuscular Hgb Conc 34.9 g/dL (31-36); Mean Corpuscular Volume 87.6 fL (80-97); Mean Platelet Volume 8.2 fL (7.5-11.2); Platelet Count 182 10^3/uL (150-450); Red Blood Count 3.38 10^6/uL (4.06-5.63); Red Cell Distribution Width 15.8 % (12-17); White Blood Count 11.4 10^3/uL (3.6-10.2)
[2023-10-25 06:27] LABS: Calcium 8.8 mg/dL (8.6-10.3); Creatinine, Serum 1.14 mg/dL (0.67-1.17); Potassium 3.6 mmol/L (3.5-5.0); eGFR CKD-EPI 67.9 (>60)
[2023-10-25] MEDS: Potassium Chlor 20 meq TAB.ER PO ONE (11:44)
[2023-10-25] MEDS ORDERED: Lidocaine 2% PF 5 ML VIAL ONE (13:30)
[2023-10-25] MEDS ORDERED: Propofol 10 MG/ML 20 ML BTL ONE ×2 (13:30)
[2023-10-25] MEDS ORDERED: Phenylephrine IV 10 MG/ML 1 ml VIAL ONE (13:35)
[2023-10-25] MEDS ORDERED: KETAMINE HCL 10 MG/ML 20 ml VIAL (200 MG) ONE (13:37)
[2023-10-25] MEDS ORDERED: Naloxone 0.4 mg VIAL 0.4 mg/ml 1 ml VIAL IV PRN (13:43)
[2023-10-25] MEDS ORDERED: Ondansetron 4 mg VIAL 2 MG/ML 2 ml VIAL IV PRN (13:43)
[2023-10-26 05:37] LABS: Hematocrit 28.7 % (38-53); Mean Corpuscular Hemoglobin 30.4 pg (27-33); Mean Corpuscular Hgb Conc 34.7 g/dL (31-36); Mean Corpuscular Volume 87.6 fL (80-97); Platelet Count 190 10^3/uL (150-450); Red Blood Count 3.28 10^6/uL (4.06-5.63); Red Cell Distribution Width 15.6 % (12-17); White Blood Count 10.3 10^3/uL (3.6-10.2)
[2023-10-26 05:54] LABS: Calcium 8.6 mg/dL (8.6-10.3); Creatinine, Serum 1.06 mg/dL (0.67-1.17); Magnesium 1.7 mg/dL (1.9-2.7); Potassium 3.3 mmol/L (3.5-5.0); eGFR CKD-EPI 74.1 (>60)
[2023-10-26] MEDS: KCL 20 MEQ/100 ML IVPREMIX 20 MEQ/100 ML BAG IV SCH (09:05)
[2023-10-26] MEDS: Magnesium Sulf 4 GM/100 ML IV 4,000 MG/100 ML BAG IVPB ONE (09:06)
[2023-10-26] MEDS: cefTRIAXone 2 gm/50 mL D5W 2 GM/50 ML BAG IV SCH (17:22)
[2023-10-27 06:40] LABS: Hematocrit 28.9 % (38-53); Hemoglobin 9.9 g/dL (13.2-16.3); Mean Corpuscular Hemoglobin 30.3 pg (27-33); Mean Corpuscular Hgb Conc 34.1 g/dL (31-36); Mean Corpuscular Volume 88.8 fL (80-97); Mean Platelet Volume 7.7 fL (7.5-11.2); Platelet Count 205 10^3/uL (150-450); Red Blood Count 3.26 10^6/uL (4.06-5.63); Red Cell Distribution Width 15.6 % (12-17); White Blood Count 8.3 10^3/uL (3.6-10.2)
[2023-10-27 06:50] LABS: Calcium 8.6 mg/dL (8.6-10.3); Creatinine, Serum 0.97 mg/dL (0.67-1.17); Magnesium 1.9 mg/dL (1.9-2.7); Potassium 3.7 mmol/L (3.5-5.0); eGFR CKD-EPI 82.4 (>60)
[2023-10-27] MEDS: Potassium Chlor 20 meq TAB.ER PO ONE (08:23)
[2023-10-27 14:20] VITALS: BP 124/64
== END 2023-10-27 15:30 | disposition home or self-care (01) | DRG 872 ==
LOC: ED 17:00 → EDHOLD 19:48 → SUATTDRO 19:48 → EDHOLD 22:31 → MED 23:35
PROVIDERS: ADMIT Internal Medicine; ATTEND Internal Medicine
PROC: O.CATEE (2023-10-25 14:15)